=== PATIENT | female | born 1980 | race African-American/Black ===

== ENCOUNTER 2023-12-08 14:06 | Emergency (ER) | payer OTHER, SELFPAY ==
--- NOTE | ~2023-12-08 | CT_ITS ---
EXAMINATION: CT ABDOMEN AND PELVIS WITH CONTRAST CLINICAL INFORMATION: Left lower quadrant pain and distention COMPARISON: None available. TECHNIQUE: Multidetector volumetric images were obtained from the superior aspect of the liver through the pubic symphysis following administration 85 mL of Omnipaque 350 intravenous contrast. Sagittal and coronal reformatted images were obtained on the technologist's workstation. Oral contrast: Yes This CT examination was performed using dose optimization techniques as appropriate, variously including the following: *Automated exposure control *Adjustment of mA and/or kV according to patient size (this includes techniques or standardized protocols for targeted exams where dose is matched to indication/reason for exam; i.e. extremities or head) *Use of iterative reconstruction technique DLP: 411 mGy-cm FINDINGS: LUNG BASES: The visualized lung bases are unremarkable. LIVER, GALLBLADDER, AND BILIARY TREE: The liver is normal in size, shape, and attenuation. No focal hepatic lesion or biliary ductal dilatation is present. The gallbladder has been removed. PANCREAS: Unremarkable. SPLEEN: Unremarkable. ADRENAL GLANDS: Unremarkable. KIDNEYS AND URETERS: The kidneys are normal in size, shape, and attenuation. No hydronephrosis, hydroureter, or calculi seen. No perinephric stranding. BLADDER: Unremarkable. GASTROINTESTINAL TRACT: There is diverticulosis of the colon. There is wall thickening and edema of the distal left colon and proximal sigmoid colon. There is stranding of the surrounding fat. Long segment distribution favors colitis over diverticulitis. Constipation. Small and large bowel otherwise unremarkable. The appendix is normal. ABDOMINAL WALL: No significant hernia is appreciated. LYMPH NODES: Normal. VASCULAR: Unremarkable. PELVIC VISCERA: Trace fluid in the pelvis. 1.6 cm left ovarian cyst with enhancing wall. Uterus and right adnexa are unremarkable. OSSEOUS STRUCTURES: Unremarkable. CT/CT abdomen pelvis w IV con IMPRESSION: Diverticulosis of the colon. Long segment wall thickening and wall edema of the left colon and proximal sigmoid colon and stranding of the surrounding fat. Differential would include colitis and diverticulitis. Fleischner guidelines were followed.
--- NOTE | 2023-12-08 14:49 | ED_ITS ---
HPI - Abdominal Pain General Chief Complaint: Abdominal Pain Stated Complaint: Lower Abd Pain Time Seen by Provider: 12/08/23 15:27 Source: patient, family and RN notes reviewed Mode of arrival: ambulatory Limitations: no limitations History of Present Illness HPI narrative: 43 year old female with pmhx significant for chronic constipation presents to the ED today for evaluation of left sided abdominal pain x2 weeks. She reports constant cramping sensation to her left lower quadrant, gradually worsening. Admits to chronic constipation since she was a child for which she has been taking laxatives, stool softeners, and enemas at home over the last 2 weeks without relief of pain. She has been passing regular BM with these. Last BM yesterday. Passing flatus. She states this feels different than her typical constipation pain. She has also been taking OTC pain medications without relief. Endorses associated nausea without vomiting secondary to pain. Reports hx of cholecystectomy and abdominoplasty. No other abdominal surgeries. Denies chance of . Denies known sick contacts. Denies recent travel outside of the . Denies fevers, chills, vomiting, rashes, flank pain, dysuria, hematuria, melena, hematochezia, brbpr. Related Data Previous Rx's ?Medication ?Instructions ?Recorded acetaminophen 300 mg-codeine 30 mg 1 tab PO Q6H PRN pain (scale score 12/08/23 tablet 7-10) 2 days #8 tabs amoxicillin 875 mg-potassium 1 tab PO Q12H 10 days #20 tabs 12/08/23 clavulanate 125 mg tablet lactulose 10 gram/15 mL oral 10 g (15 mL) PO DAILY PRN 12/08/23 solution constipation #237 mL ondansetron 4 mg disintegrating 4 mg PO DAILY PRN nausea and 12/08/23 tablet vomiting 5 days #14 tabs Allergies Allergy/AdvReac Type Severity Reaction Status Date / Time No Known Allergies Allergy Mild NOT Verified 12/08/23 14:53 APPLICABLE Review of Systems Review of Systems Constitutional: No fever, chills, fatigue, night sweats, weight changes ENT/Mouth: No ear pain, hearing loss, nasal congestion, sinus pain, rhinorrhea, sore throat Eyes: No eye pain, swelling, redness, vision changes, discharge Cardio: No chest pain, palpitations, [place], orthopnea, peripheral edema Pulm: No SOB, cough, sputum, wheezing, dyspnea, hemoptysis GI: No vomiting, hematemesis, diarrhea, constipation, hematochezia, melena, +abdominal pain, +nausea : No irregular bleeding, dysuria, frequency, urgency, hesitancy, hematuria, flank pain, urinary flow changes, urinary incontinence or retention MSK: No back pain, neck pain, joint pain, myalgias Skin: No lesions, rashes Neuro: No weakness, numbness, paresthesias, LOC, dizziness, headache Psych: No anxiety/panic, depression, SI/HI, AH/VH All other systems reviewed and are negative. [facility] Past Medical History Attestation statement: The following information was validated with the patient. Source: old records reviewed and nursing notes reviewed Social History Social History Advance Directives: No Advance Directives Information Provided: Yes Do you have a plan to hurt others: No Plan Physical Exam ED Vital Signs: Vital Signs - 24 hr 12/08/23 14:50 12/08/23 15:45 12/08/23 16:15 Temperature 98 F 98.7 F Pulse Rate 81 75 Respiratory Rate 16 16 16 Blood Pressure 134/82 106/68 Pulse Oximetry 97 100 Oxygen Delivery Method Room Air Room Air 12/08/23 17:58 12/08/23 18:35 Temperature 98.4 F 98.4 F Pulse Rate 76 76 Respiratory Rate 16 16 Blood Pressure 106/68 Pulse Oximetry 97 97 Oxygen Delivery Method Room Air Room Air BMI result Body Mass Index 26.0 Vital signs stable, afebrile Const General: cooperative, healthy appearing, comfortable and no acute distress Orientation/consciousness: patient oriented x3 Limitations: no limitations [facility] Head: Yes normal to inspection, Yes No palpable skull fracture present, Yes normocephalic and Yes atraumatic Eyes General: appearance normal, both eyes and all related structures Pupils: Equal, round and reactive pupils present Neck Neck: Yes normal visual inspection and Yes no lymphadenopathy Resp Effort & Inspection: normal respiratory effort and able to speak in complete sentences Auscultation: clear to auscultation bilaterally Cardio Rate: regular rate Rhythm: regular rhythm GI Other: + abdomen distended, tender to palpation of the left lower quadrant, no rebound or guarding. Normoactive bowel sounds x4. General: Yes no CVA tenderness Back/Spine/Pelvis Back: no CVA tenderness Skin General skin exam: no rashes or lesions noted Neuro General: patient oriented x3 and gait normal Cranial nerves: Yes Equal, round and reactive pupils present Course Course Course Narrative: This is an RME performed by Enrrique Masters CNP: Additional HPI, ROS, PE not included below will be deferred to primary provider. Patient is a 43-year-old female who presents emergency department for evaluation of left-sided abdominal pain. She reports a history of similar pain in the past due to chronic constipation, however she has been taking laxatives and enemas without any improvement to her pain. Pain has varying in intensity and has associated nausea. Denies fevers, chills vomiting, diarrhea, dysuria, hematochezia, melena. Denies possibility of citing tubal ligation, lmp 4wks ago. Plan: Labs, urinalysis Reevaluation(s) Reevaluation #1: 1654-- CBC showing leukocytosis to 13.6 with left shift. Slightly anemic with H&H 11.8/36.2. Chemistry without acute electrolyte abnormality requiring intervention. Normal renal function. Normal liver function. Lipase WNL at 20. Beta hCG undetectable > not . Urine is negative for infection, blood and . > ct abd pending. > patient receiving IV fluids, morphine, and zofran 1809-- CT abd/pelvis showing diverticulosis of the colon with long segment wall thickening and wall edema of the left colon and proximal sigmoid colon with stranding of the surrounding fat. Consistent with colitis vs diverticulitis. There is also an incidental finding of 1.6 cm left ovarian cyst with trace free fluid in the pelvis > likely not etiology of patient's current discomfort. > On re-evaluation, patient reports improvement in symptoms with morphine, IVF, and zofran. Discussed all work up results. Will treated for diverticulitis with augmentin. One dose given in ED. Tolerating PO intake in ED. She does not meet admission criteria. Advised to follow up with hay stacker for ovarian cyst. She states she is aware of this and has had ovarian cysts since she was a child. Patient has remained stable throughout ED visit today. Discussed worrisome signs and symptoms and when to return to the ED. All questions answered at this time. Patient is agreeable with disposition and stable for discharge. Medical Decision Making Medical Decision Making [facility] Narrative: 43 year old female with pmhx significant for chronic constipation presents to the ED today for evaluation of left sided abdominal pain x2 weeks. Vital signs stable, afebrile. She is nontoxic appearing in no acute distress. Obvious discomfort when transitioning from seated to supine position. On exam, slightly distended abdomen, tender to palpation of the left lower quadrant without rebound tenderness or guarding. Negative rovsing. Negative mcburney point tenderness. Normoactive bowel sounds x4. No CVAT bilaterally. Differential diagnosis includes constipation, diverticulosis, diverticulitis, , UTI, renal stone, ovarian cyst. Lower suspicion for ovarian cyst rupture, tubo-ovarian abscess, SBO, ischemic bowel, ectopic, pyelo. Plan for basic labs, UA, u preg, ct abd/pelvis. Differential Diagnosis Differential Diagnoses: The differential diagnosis associated with the presentation includes as above. Admission/Observation Consideration of admission/observation: Escalation of care including admission/observation considered Admission considered on presentation. Lab Data [facility] Lab Attestation statement: I reviewed the patient's lab results. as above. 12/08/23 15:28 12/08/23 15:28 Labs: Lab Results 12/08/23 12/08/23 Range/Units 15:28 15:43 WBC 13.6 H (4.8-10.8) X10*3/uL RBC 4.06 L (4.20-5.50) X10*6/uL Hgb 11.8 L (12.0-16.0) g/dl Hct 36.2 L (37.0-47.0) % MCV 89.2 (80.0-98.0) fL MCH 29.1 (27.0-33.0) pg MCHC 32.6 (31.0-35.0) g/dl RDW 14.4 (11.0-16.0) % Plt Count 257 (160-400) X10*3/uL MPV 10.3 (9.4-12.3) fL Immature Gran % (Auto) 0.4 (0.0-0.4) % Neut % (Auto) 80.3 H (45-73) % Lymph % (Auto) 10.6 L (20-40) % Lawrence % (Auto) 8.4 (2-11) % Eos % (Auto) 0.1 (0-4) % Baso % (Auto) 0.2 (0-2) % Lymph # (Auto) 1.5 (1.2-4.9) X10*3/uL Lawrence # (Auto) 1.2 (0.1-1.2) X10*3/uL Eos # (Auto) 0.0 (0.0-0.4) X10*3/uL Baso # (Auto) 0.0 (0.0-0.2) X10*3/uL Abs Immat Gran (auto) 0.05 H (0.00-0.03) X10*3/uL Absolute Neuts (auto) 10.9 H (2.0-8.3) x10*3/uL Absolute Nucleated RBC 0.000 (0.0-0.012) X10*3/uL Nucleated RBC % (auto) 0.0 (0.0-0.2) /100WBC Sodium 138 (135-145) mmol/L Potassium 3.8 (3.3-5.1) mmol/L Chloride 104 (96-108) mmol/L Carbon Dioxide 24 (22-29) mmol/L Anion Gap 14 (12-20) BUN 9 (9-16) mg/dL Creatinine 0.72 (0.5-1.4) mg/dL Estim Creat Clear Calc 89.7 Estimated GFR > 60 Random Glucose 94 (60-115) mg/dL Calcium 9.5 (8.4-10.2) mg/dL Magnesium 2.2 (1.6-2.6) mg/dL Total Bilirubin 0.3 (0.0-1.0) mg/dL AST 19 (5-31) U/L ALT 15 (0-31) U/L Alkaline Phosphatase 73 (39-117) U/L Total Protein 7.8 (6.5-8.0) g/dL Albumin 4.3 (3.5-5.0) g/dL Lipase 20 (8-78) U/L Beta HCG, Quant < 2 mIU/mL Urine Color Yellow Urine Appearance Clear Urine pH 6.0 (5.0-9.0) Ur Specific Berkley >= 1.030 H (1.005-1.025) Urine Protein Trace (Neg-Trace) mg/dL Urine Glucose (UA) Negative (Negative) mg/dL Urine Ketones Trace (Negative) mg/dL Urine Blood Negative (Negative) Urine Nitrite Negative (Negative) Ur Leukocyte Esterase Negative (Negative) Urine Test NEGATIVE (NEGATIVE) Independent Interpretation I performed an independent interpretation of an: CT Scan Interpretation: CT abd/pelvis showing bowel wall thickening, agree with radiologist's interpretation. Radiology Impression Discussion of test interpretation with radiology: I have reviewed the radiologist's reading. Radiologist Impression: EXAMINATION: CT ABDOMEN AND PELVIS WITH CONTRAST CLINICAL INFORMATION: Left lower quadrant pain and distention COMPARISON: None available. TECHNIQUE: Multidetector volumetric images were obtained from the superior aspect of the liver through the pubic symphysis following administration 85 mL of Omnipaque 350 intravenous contrast. Sagittal and coronal reformatted images were obtained on the technologist's workstation. Oral contrast: Yes This CT examination was performed using dose optimization techniques as appropriate, variously including the following: *Automated exposure control *Adjustment of mA and/or kV according to patient size (this includes techniques or standardized protocols for targeted exams where dose is matched to indication/reason for exam; i.e. extremities or head) *Use of iterative reconstruction technique DLP: 411 mGy-cm FINDINGS: LUNG BASES: The visualized lung bases are unremarkable. LIVER, GALLBLADDER, AND BILIARY TREE: The liver is normal in size, shape, and attenuation. No focal hepatic lesion or biliary ductal dilatation is present. The gallbladder has been removed. PANCREAS: Unremarkable. SPLEEN: Unremarkable. ADRENAL GLANDS: Unremarkable. KIDNEYS AND URETERS: The kidneys are normal in size, shape, and attenuation. No hydronephrosis, hydroureter, or calculi seen. No perinephric stranding. BLADDER: Unremarkable. GASTROINTESTINAL TRACT: There is diverticulosis of the colon. There is wall thickening and edema of the distal left colon and proximal sigmoid colon. There is stranding of the surrounding fat. Long segment distribution favors colitis over diverticulitis. Constipation. Small and large bowel otherwise unremarkable. The appendix is normal. ABDOMINAL WALL: No significant hernia is appreciated. LYMPH NODES: Normal. VASCULAR: Unremarkable. PELVIC VISCERA: Trace fluid in the pelvis. 1.6 cm left ovarian cyst with enhancing wall. Uterus and right adnexa are unremarkable. OSSEOUS STRUCTURES: Unremarkable. CT/CT abdomen pelvis w IV con IMPRESSION: Diverticulosis of the colon. Long segment wall thickening and wall edema of the left colon and proximal sigmoid colon and stranding of the surrounding fat. Differential would include colitis and diverticulitis. Fleischner guidelines were followed. Independent Historian Clinical information obtained from an independent historian. History obtained from or confirmed by: Other (daughter, son) Prescription Management I considered prescription management with: Pain Medication and Antibiotic (augmentin) Chronic Conditions Patient?s care impacted by: Other (constipation) Social Determinants Patient?s care significantly limited by Social Determinants of Health including: Other Social Determinant of Health Medications Administered Discontinued Medications Generic Name Dose Route Start Last Admin Trade Name Freq PRN Reason Stop Dose Admin Amoxicillin/Clavulanate Potassium 875 mg 12/08/23 17:40 12/08/23 17:50 Amoxicillin/Potassium Clav 875 Mg Tablet PO 12/08/23 17:41 875 mg ONCE ONE Administration Sodium Chloride 1,000 mls @ 999 mls/hr 12/08/23 16:00 12/08/23 18:24 Ns IV 12/08/23 17:00 Infused .Q1H1M ELIZABET Infusion Iohexol 100 ml 12/08/23 16:26 12/08/23 16:26 Iohexol 350 Mg/Ml 100 Ml Infus..Btl IV 12/08/23 16:27 85 ml ONCE ONE Administration Morphine Sulfate 2 mg 12/08/23 15:50 12/08/23 16:15 Morphine Sulfate 2 Mg/Ml Cartridge IVPUSH 12/08/23 15:51 2 mg ONCE ONE Administration Protocol Ondansetron HCl 4 mg 12/08/23 15:50 12/08/23 16:15 Ondansetron Hcl 4 Mg/2 Ml Vial IVPUSH 12/08/23 15:51 4 mg ONCE ONE Administration Critical Care Time Critical Care Time Critical Care Time: Yes Total Critical Care Time: 35 Attestation: Critical care time in the amount of 35 minutes has been provided to the patient in terms of direct patient care, frequent reevaluation, review and interpretation of medical data and results, and management of potentially life- threatening conditions. This is all outside of any medical procedures. Discharge Plan Discharge Clinical Impression: Diverticulitis, Cyst of left ovary Patient Disposition: Home, Self-Care Instructions: Ovarian Cyst (ED), Diverticulitis (ED), Diverticulitis Diet (ED), GI (Gastrointestinal) Soft Diet (ED) Additional Instructions: Your labs showed slight increase in white count, otherwise reassuring. Your urine is negative for infection and . The scan of your abdomen/pelvis demonstrates diverticulitis, inflammation/infection of the out-pouchings within your colon. This is treated with antibiotics. Augmentin is an antibiotic that has been sent to your pharmacy. Take this to completion. You were given 1 dose in the ED today. Take the next dose tomorrow morning. On Augmentin, softer bowel movements are to be expected. Call your provider if you move your bowels more than 4 times a day, your bowel movements are almost all liquid, or you get a rash.? Please stick to soft/liquid diet over the next few days to give your bowel rest. An example of diverticulitis diet is attached to this packet. May take Tylenol and ibuprofen as needed for pain/discomfort. Tylenol with codeine #3 is a controlled pain medication that has been sent to your pharmacy for you to take for breakthrough pain. You have been provided with a referral to GI specialist. You may call them to establish care. They will not call you. Return for new or worsening symptoms. In the case of an emergency call 911. We also discussed incidental finding of 1.6 cm left ovarian cyst that you are aware of. Please follow-up with your associate professor of criminal justice for monitoring. Prescriptions: New amoxicillin-pot clavulanate 875-125 mg tablet 1 tab PO Q12H 10 Days Qty: 20 0RF acetaminophen-codeine 300-30 mg tablet 1 tab PO Q6H PRN (Reason: pain (scale score 7-10)) 2 Days Qty: 8 0RF lactulose 10 gram/15 mL solution 10 g PO DAILY PRN (Reason: constipation) Qty: 237 0RF ondansetron 4 mg tablet,disintegrating 4 mg PO DAILY PRN (Reason: nausea and vomiting) 5 Days Qty: 14 0RF [place]: [facility] [Provider Group] Interventions: ED Discharge Assessment Last Done: 12/08/23 18:35 Discharge Date/Time: 12/08/23 18:36 Print Language: [place]
[2023-12-08 14:50] VITALS: BP 134/82; PULSE 81; RESP 16; TEMP 36.6; O2SAT 97; BMI 26.0
[2023-12-08 15:34] LABS: MANUAL DIFF FLAG NO
[2023-12-08 15:35] LABS: Basophils Percent Auto 0.2 % (0-2); Eosinophils Percent Auto 0.1 % (0-4); Hematocrit 36.2 % (37.0-47.0); Hemoglobin 11.8 g/dl (12.0-16.0); Imm Gran Abs Auto 0.05 X10*3/uL (0.00-0.03); Imm Gran Pct Auto 0.4 % (0.0-0.4); Lymphocytes Absolute Auto 1.5 X10*3/uL (1.2-4.9); Lymphocytes Percent Auto 10.6 % (20-40); Mean Corpuscular HGB Conc 32.6 g/dl (31.0-35.0); Mean Corpuscular Hemoglobin 29.1 pg (27.0-33.0); Mean Corpuscular Volume 89.2 fL (80.0-98.0); Mean Platelet Volume 10.3 fL (9.4-12.3); Monocytes Absolute Auto 1.2 X10*3/uL (0.1-1.2); Monocytes Percent Auto 8.4 % (2-11); Neutrophils Absolute Auto 10.9 x10*3/uL (2.0-8.3); Neutrophils Percent Auto 80.3 % (45-73); Platelet Count 257 X10*3/uL (160-400); Red Blood Count 4.06 X10*6/uL (4.20-5.50); Red Cell Distribution Width 14.4 % (11.0-16.0); White Blood Count 13.6 X10*3/uL (4.8-10.8)
[2023-12-08 15:45] VITALS: BP 106/68; PULSE 75; RESP 16; TEMP 37.1; O2SAT 100
[2023-12-08 15:58] LABS: Alanine Aminotransferase 15 U/L (0-31); Albumin Level 4.3 g/dL (3.5-5.0); Alkaline Phosphatase 73 U/L (39-117); Anion Gap 14 (12-20); Aspartate Amino Transferase 19 U/L (5-31); Bilirubin Total 0.3 mg/dL (0.0-1.0); Blood Urea Nitrogen 9 mg/dL (9-16); Calcium 9.5 mg/dL (8.4-10.2); Carbon Dioxide 24 mmol/L (22-29); Chloride 104 mmol/L (96-108); Creatinine Clr Calc Pharmacy 89.7; Estimated Glomerular Filt Rate > 60; Glucose Random 94 mg/dL (60-115); Lipase 20 U/L (8-78); Magnesium 2.2 mg/dL (1.6-2.6); Potassium 3.8 mmol/L (3.3-5.1); Sodium 138 mmol/L (135-145); Total Protein 7.8 g/dL (6.5-8.0)
[2023-12-08 16:13] LABS: Appearance Urine Clear; Color Urine Yellow; Glucose Urine UA Negative (Negative); Leukocyte Esterase Urine Negative (Negative); Nitrite Urine Negative (Negative); Specific Gravity - Urine >= 1.030 (1.005-1.025); Urine Blood Negative (Negative); Urine Ketones Trace mg/dL (Negative); Urine Protein Trace mg/dL (Neg-Trace)
[2023-12-08 16:15] VITALS: RESP 16
[2023-12-08] MEDS: Morphine Sulfate 2 MG/ML CARTRIDGE IVPUSH (16:15)
[2023-12-08] MEDS: ondansetron HCL 4 MG/2 ML VIAL IVPUSH (16:15)
[2023-12-08] MEDS: 0.9 % Sodium Chloride 1,000 ML 999 ML IV (16:15)
[2023-12-08 16:19] LABS: UPreg QC Valid YES; Urine Pregnancy NEGATIVE (NEGATIVE)
[2023-12-08] MEDS: iohexoL 350 MG/ML 100 ML INFUS..BTL IV (16:26)
[2023-12-08 16:35] LABS: HCG Quantitative < 2 mIU/mL
[2023-12-08] MEDS: Amoxicillin/Potassium Clav 875 MG TABLET PO (17:50)
[2023-12-08 17:58] VITALS: PULSE 76; RESP 16; TEMP 36.9; O2SAT 97
[2023-12-08 18:35] VITALS: BP 106/68; PULSE 76; RESP 16; TEMP 36.9; O2SAT 97
== END 2023-12-08 18:36 | disposition home or self-care (01) ==
PROVIDERS: Nurse Practitioner Family; Physician Assistant Medical; Emergency Provider Emergency Medicine; PCP Internal Medicine
DX: K57.92 Diverticulitis of intestine, part unspecified, without perforation or abscess without bleeding (principal); N83.202 Unspecified ovarian cyst, left side; K57.30 Diverticulosis of large intestine without perforation or abscess without bleeding
CPT/HCPCS: 36415; 74177; 80053; 81003; 81025; 83690; 83735; 84702; 85025; 96361; 96374; 96375; 99283; 99284; J2270; J2405; Q9967